=== PATIENT | male | born 1940 | race Caucasian/White ===

== ENCOUNTER → 2016-08-08 | Outpatient (CLI) | payer MEDICARE | LOC: KOH-I 14:13 | DX: R06.02 Shortness of breath (principal); Z87.891 Personal history of nicotine dependence; R91.8 Other nonspecific abnormal finding of lung field | CPT/HCPCS: 71020 ==

== ENCOUNTER 2020-10-18 15:51 | Inpatient (IN) | payer OTHER ==
[~2020-10-18] VITALS: Ht 172.7 cm; Wt 107.0 kg
[~2020-10-18 15:51] MED LIST: ALDACTAZIDE 251 EACH PO; ANTIVERT 25MG T25 MG PO; BUMEX 1MG TABLET1 MG PO; BYDUREON P2 MG/0.65 SQ; CARVEDILOL12.5 MG PO; COLACE 100MG C100 MG PO; COREG6.25 MG PO; ECOTRIN81 MG PO; ELIQUIS 5 MG TAB5 MG PO; FLOMAX 0.4 MG0.4 MG PO; HYDRALAZINE HC100 MG PO; LASIX40 MG PO; NORVASC 5 MG TAB5 MG PO; PRINIVIL10 MG PO; THERAGRAN M TAB1 EA PO; TRESIBA FL100 UNIT/1 SQ; VENTOLIN HFA 66.7 GM INH
[2020-10-18 16:14] LABS: HEMOGLOBIN 10.4 gm/dl (14.0-17.5); RED BLOOD COUNT 3.52 M/UL (4.20-5.50); WHITE BLOOD COUNT 8.8 K/UL (4.5-11.0)
[2020-10-18 16:40] LABS: BUN/CREATININE RATIO 35 (0-10)
[2020-10-19] MEDS ORDERED: HYDROCODON-ACE1 EAC2 PO (14:29)
[2020-10-19] MEDS ORDERED: OZEMPIC1 MG/0.75 SQ (14:30)
[2020-10-19] MEDS ORDERED: FINASTERIDE5 MG PO (14:31)
[2020-10-19] MEDS ORDERED: MULTIVITAMINS1 EAC2 PO (14:34)
[2020-10-19] MEDS ORDERED: AMLODIPINE BESY10 MG PO (14:35)
[2020-10-19] MEDS ORDERED: MECLIZINE HCL25 MG PO (14:37)
[2020-10-19] MEDS ORDERED: GABAPENTIN300 MG PO (19:11)
[2020-10-19] MEDS ORDERED: FERROUS SULFAT325 M2 PO (19:12)
[2020-10-20 05:49] LABS: HEMOGLOBIN 10.1 gm/dl (14.0-17.5); RED BLOOD COUNT 3.35 M/UL (4.20-5.50)
--- NOTE | 2020-10-20 08:39 | NUR ---
PATIENT TRANSPORTED TO [facility] BY [facility] RN. REPORT CALLED TO PCU NURSE, KAMINI WHERE THE PATEINT WILL BE GOING POST OP.
[2020-10-20] MEDS ORDERED: TRESIBA FLEXTOUCH SC (11:31)
[2020-10-20] MEDS ORDERED: HYDROCODON-ACE1 EAC4 PO (14:44)
[2020-10-20] MEDS ORDERED: CLINDAMYCIN HC300 MG PO (14:44)
[2020-10-20] MEDS ORDERED: LEVOFLOXACIN500 MG PO (14:44)
--- NOTE | 2020-10-20 15:09 | NUR ---
PT RECIVED FROM OR AFTER PACEMAKER PLACED IN LEFT CHEST WALL. PT A/O X4. VITALS STABLE AT THIS TIME DRESSING CDI
[2020-10-20] MEDS ORDERED: FISH OIL 1,0001 EAC1 PO (19:23)
[2020-10-22 02:49] LABS: HEMOGLOBIN 9.7 gm/dl (14.0-17.5); RED BLOOD COUNT 3.29 M/UL (4.20-5.50); WHITE BLOOD COUNT 6.3 K/UL (4.5-11.0)
[2020-10-22 03:23] LABS: BUN/CREATININE RATIO 31 (0-10)
[2020-10-23 02:42] LABS: HEMOGLOBIN 9.5 gm/dl (14.0-17.5); RED BLOOD COUNT 3.22 M/UL (4.20-5.50); WHITE BLOOD COUNT 5.6 K/UL (4.5-11.0)
[2020-10-23 03:00] LABS: BUN/CREATININE RATIO 31 (0-10)
[2020-10-24 11:51] LABS: HEMOGLOBIN 10.3 gm/dl (14.0-17.5); RED BLOOD COUNT 3.45 M/UL (4.20-5.50)
[2020-10-24 11:53] LABS: WHITE BLOOD COUNT 8.1 K/UL (4.5-11.0)
[2020-10-24 12:20] LABS: BUN/CREATININE RATIO 24 (0-10)
[2020-10-26 03:58] LABS: HEMOGLOBIN 9.2 gm/dl (14.0-17.5); WHITE BLOOD COUNT 7.5 K/UL (4.5-11.0)
[2020-10-26 04:10] LABS: RED BLOOD COUNT 3.09 M/UL (4.20-5.50)
[2020-10-26 04:21] LABS: BUN/CREATININE RATIO 23 (0-10)
[2020-10-26] MEDS ORDERED: HYDROCODON-ACE1 EAC4 PO ×2 (08:36→08:54)
[2020-10-26] MEDS ORDERED: GABAPENTIN300 MG PO ×2 (08:36→08:54)
[2020-10-26] MEDS ORDERED: LEVOFLOXACIN500 MG PO ×2 (08:36→08:54)
[2020-10-26] MEDS ORDERED: CLINDAMYCIN HC300 MG PO ×2 (08:36→08:54)
[2020-10-26] MEDS ORDERED: TRESIBA FLEXTOUCH SC (08:36)
== END 2020-10-26 14:13 | DRG 242 ==
LOC: ER1 15:51 → CDU 17:13 → CCU 17:13 → PROG CARE 17:13 → CCU 10-19 15:12 → PROG CARE 10-20 08:42
PROVIDERS: Family Medicine; Internal Medicine; Internal Medicine Nephrology; Physician Assistant; ADMIT Internal Medicine
PROC: 0JH606Z Insertion of Pacemaker, Dual Chamber into Chest Subcutaneous Tissue and Fascia, Open Approach (ICD-10-PCS; principal; 2020-10-18)
PROC: 02H60JZ Insertion of Pacemaker Lead into Right Atrium, Open Approach (ICD-10-PCS; 2020-10-18)
PROC: 02HK3JZ Insertion of Pacemaker Lead into Right Ventricle, Percutaneous Approach (ICD-10-PCS; 2020-10-18)
PROC: 02HK3JZ Insertion of Pacemaker Lead into Right Ventricle, Percutaneous Approach (ICD-10-PCS; 2020-10-19)
PROC: 5A1223Z Performance of Cardiac Pacing, Continuous (ICD-10-PCS; 2020-10-19)
PROC: B24BZZ4 Ultrasonography of Heart with Aorta, Transesophageal (ICD-10-PCS; 2020-10-20)
PROC: 5A09457 Assistance with Respiratory Ventilation, 24-96 Consecutive Hours, Continuous Positive Airway Pressure (ICD-10-PCS; 2020-10-25)
PROC: 5A0935A Assistance with Respiratory Ventilation, Less than 24 Consecutive Hours, High Flow/Velocity Cannula (ICD-10-PCS; 2020-10-25)
DX: I44.2 Atrioventricular block, complete (principal); J96.01 Acute respiratory failure with hypoxia; I50.33 Acute on chronic diastolic (congestive) heart failure; K72.00 Acute and subacute hepatic failure without coma; I50.32 Chronic diastolic (congestive) heart failure; N17.9 Acute kidney failure, unspecified; Z20.822 Contact with and (suspected) exposure to COVID-19; I11.0 Hypertensive heart disease with heart failure; R29.6 Repeated falls; R53.81 Other malaise; G47.33 Obstructive sleep apnea (adult) (pediatric); E11.65 Type 2 diabetes mellitus with hyperglycemia; E66.01 Morbid (severe) obesity due to excess calories; E78.5 Hyperlipidemia, unspecified; N40.0 Benign prostatic hyperplasia without lower urinary tract symptoms; D64.9 Anemia, unspecified; I27.20 Pulmonary hypertension, unspecified; Z91.14 Patient's other noncompliance with medication regimen; Z79.82 Long term (current) use of aspirin; Z91.81 History of falling; Z85.038 Personal history of other malignant neoplasm of large intestine; Z79.4 Long term (current) use of insulin; Z87.81 Personal history of (healed) traumatic fracture; Z90.49 Acquired absence of other specified parts of digestive tract; Z68.35 Body mass index [BMI] 35.0-35.9, adult
CPT/HCPCS: ECHO; 33208; 33210; 36415; 36600; 71045; 80048; 80053; 82436; 82550; 82553; 82570; 82728; 82803; 82962; 83540; 83550; 83605; 83735; 83874; 83880; 83930; 83935; 84100; 84133; 84156; 84300; 84439; 84443; 84484; 85025; 85027; 85610; 93005; 93306; 94640; 94660; 94760; 97110; 97110-GP-CQ; 97116; 97116-GP-CQ; 97161; 97530; 99152; 99153; 99285; C1785; C1898; J1265; J1644; J1940; J2250; J2270; J3010; J3370; J7040; J7050; Q9965; U0002

== ENCOUNTER → 2020-12-16 | Outpatient (CLI) | payer OTHER ==
[~2020-12-16] MED LIST changes: +AMLODIPINE BESY10 MG PO; +CLINDAMYCIN HC300 MG PO; +FERROUS SULFAT325 M2 PO; +FINASTERIDE5 MG PO; +FISH OIL 1,0001 EAC1 PO; +GABAPENTIN300 MG PO; +HYDROCODON-ACE1 EAC2 PO; +HYDROCODON-ACE1 EAC4 PO; +LEVOFLOXACIN500 MG PO; +MECLIZINE HCL25 MG PO; +MULTIVITAMINS1 EAC2 PO; +OZEMPIC1 MG/0.75 SQ; +TRESIBA FLEXTOUCH SC
== END ==
LOC: KOH-I 10:55
DX: M54.6 Pain in thoracic spine (principal); M48.54XA Collapsed vertebra, not elsewhere classified, thoracic region, initial encounter for fracture
CPT/HCPCS: 72070

== ENCOUNTER 2021-08-15 09:47 | Emergency (ER) | payer OTHER | END 2021-08-15 09:55 | disposition E | LOC: ER1 09:47 | DX: I46.9 Cardiac arrest, cause unspecified (principal); E11.9 Type 2 diabetes mellitus without complications; I11.0 Hypertensive heart disease with heart failure; I50.9 Heart failure, unspecified; Z95.0 Presence of cardiac pacemaker | CPT/HCPCS: 92950; 99285; J0171 ==